=== PATIENT | female | born 1975 | race Caucasian/White ===

== ENCOUNTER 2022-05-19 20:37 | Emergency (ER) | payer SELFPAY ==
[~2022-05-19] VITALS: Ht 167.6 cm; Wt 68.5 kg
[2022-05-19 20:45] VITALS: BP_SYST 151
--- NOTE | 2022-05-19 21:08 | NUR ---
Patient to ER bed [address] to gown for evaluation. Side rails up. Report given to Judith FAUST(reg).
--- NOTE | 2022-05-19 21:15 | NUR ---
46 y/o F BIB BLS ambulance for c/o LUQ abd non-radiating burning pain after eating pizza earlier today. Denies any N/V, fevers, or chest pain at this time. Arrived to ED in no acute distress. breathing adequately on RA.
--- NOTE | 2022-05-19 21:18 | NUR ---
ER Dr. Drummond at bedside examining patient.
[2022-05-19] MEDS ORDERED: FAMO40TA71 PO (21:24)
[2022-05-19] MEDS ORDERED: MAG-AL HYDROX/SIMETH 30 ML UDC PO ONE (21:30)
--- NOTE | 2022-05-19 21:50 | NUR ---
Patient given written and verbal discharge instructions and verbalizes understanding. ER MD Drummond discussed with patient the results and treatment provided. Patient in stable condition. ID arm band removed. Rx of Pepcid sent to pharmacy of choice. Pain Scale 0/10. Opportunity for questions provided and answered. Medication side effect fact sheet provided. Pt reports being homeless; offered assistance with [facility] placement, but denied at this time. Pt states she will wait in the waiting room for now and will take the bus shortly. Meal and blanket provided.
[2022-05-19 22:01] VITALS: BP_SYST 146
== END 2022-05-19 22:00 | disposition home or self-care (01) ==
LOC: SED 20:37
DX: K29.70 Gastritis, unspecified, without bleeding (principal); Z79.899 Other long term (current) drug therapy
CPT/HCPCS: 99283